=== PATIENT | female | born 1955 | race Caucasian/White ===

== ENCOUNTER → 2017-08-10 | Outpatient (CLI) | payer OTHER ==
--- NOTE | 2017-08-10 09:30 | RAD ---
DATE: 08/10/2017 EXAM: DIGITAL SCREEN BILAT W/CAD HISTORY: Routine screening. COMPARISON: 05/16/2016 and 04/13/2015. This study was interpreted with the benefit of Computerized Aided Detection (CAD). FINDINGS: There is a nodular density in the inner aspect of the right breast mid depth, more prominent than prior study. Additional views are recommended. The left breast is unremarkable. No suspicious microcalcifications are seen. The axillae are unremarkable. Breast Density: SCATTERED The breast parenchyma shows scattered fibroglandular densities. Breast parenchyma level B. IMPRESSION: Right breast density. Additional views are recommended. BI-RADS CATEGORY: 0 INCOMPLETE: NEEDS ADDITIONAL IMAGING EVALUATION AND/OR PRIOR MAMMOGRAMS FOR COMPARISON. RECOMMENDED FOLLOW-UP: ADD ADDITIONAL IMAGING PQRS compliance statement: Patient information was entered into a reminder system with a target due date for the next mammogram. Mammography is a sensitive method for finding small breast cancers, but it does not detect them all and is not a substitute for careful clinical examination. A negative mammogram does not negate a clinically suspicious finding and should not result in delay in biopsying a clinically suspicious abnormality. "Our facility is accredited by the [employer] Mammography [employer]."
== END | disposition home or self-care (01) ==
LOC: MAMMO 08:22
PROVIDERS: ATTEND Obstetrics & Gynecology
DX: Z12.31 Encounter for screening mammogram for malignant neoplasm of breast (principal)
CPT/HCPCS: G0202; 77067

== ENCOUNTER → 2017-08-18 | Outpatient (CLI) | payer OTHER ==
--- NOTE | 2017-08-18 11:10 | RAD ---
DATE: August 18, 2017 EXAM: DIGITAL DIAGNOSTIC RT, BREAST RIGHT HISTORY: Further evaluation of nodule seen on screening mammogram. COMPARISON: August 10, 2017 This study was interpreted with the benefit of Computerized Aided Detection (CAD). FINDINGS: Focal digital compression views of the right breast in the CC and 90 degree projections and a digital rolled CC views of the right breast performed. The previously seen nodular density persists in the CC projection. It is vaguely seen on the 90 degree view. This measures 3.5 mm in size in the CC projection. RIGHT BREAST SONOGRAPHY: High-resolution sonography of all 4 quadrants and the retroareolar region of the right breast were performed. No focal sonographic abnormality is seen. IMPRESSION: Probable benign nodule of the right breast. Recommend 6 month follow-up mammogram of the right breast. BI-RADS CATEGORY: 3 PROBABLE BENIGN-SHORT TERM F/U RECOMMENDED FOLLOW-UP: 6M 6 MONTH FOLLOW-UP PQRS compliance statement: Patient information was entered into a reminder system with a target due date February 08, 2018 for the next mammogram. Mammography is a sensitive method for finding small breast cancers, but it does not detect them all and is not a substitute for careful clinical examination. A negative mammogram does not negate a clinically suspicious finding and should not result in delay in biopsying a clinically suspicious abnormality. "Our facility is accredited by the [employer] Mammography [employer]."
== END | disposition home or self-care (01) ==
LOC: MAMMO 09:25
PROVIDERS: ATTEND Obstetrics & Gynecology
DX: N63.10 Unspecified lump in the right breast, unspecified quadrant (principal)
CPT/HCPCS: 76641; G0206; 77065

== ENCOUNTER → 2017-12-27 | Outpatient (CLI) | payer OTHER | END | disposition home or self-care (01) | LOC: MAMMO 09:38 | DX: N63.10 Unspecified lump in the right breast, unspecified quadrant (principal) | CPT/HCPCS: 77065; G0279 ==

== ENCOUNTER → 2018-08-05 | Outpatient (CLI) | payer OTHER ==
--- NOTE | 2018-08-05 13:42 | RAD ---
DATE: 08/05/2018 EXAM: DIGITAL DIAGNOSTIC BILATERAL HISTORY: Follow-up right breast nodule. COMPARISON: Previous mammogram from 12/27/2017, 2017 and 2016. This study was interpreted with the benefit of Computerized Aided Detection (CAD). FINDINGS: Breast Density: SCATTERED The breast parenchyma shows scattered fibroglandular densities. Breast parenchyma level B. Stable right medial breast nodule is seen dating back to 2016 and is benign given interval stability. The skin and nipples are within normal limits. Asymmetry seen in the left retroareolar breast on the posterior nipple line which a spot compression image gets less dense suggesting overlapping fibroglandular tissue. No suspicious calcifications, spiculated masses or areas of architectural distortion. IMPRESSION: 1. Stable right medial breast nodule dating back to 2016 and is likely benign given interval stability. BI-RADS CATEGORY: 2 BENIGN FINDING(S) RECOMMENDED FOLLOW-UP: 12M 12 MONTH FOLLOW-UP PQRS compliance statement: Patient information was entered into a reminder system with a target due date for the next mammogram. Mammography is a sensitive method for finding small breast cancers, but it does not detect them all and is not a substitute for careful clinical examination. A negative mammogram does not negate a clinically suspicious finding and should not result in delay in biopsying a clinically suspicious abnormality. "Our facility is accredited by the [employer] Mammography [employer]."
== END | disposition home or self-care (01) ==
LOC: MAMMO 12:52
PROVIDERS: ATTEND Obstetrics & Gynecology
DX: N63.12 Unspecified lump in the right breast, upper inner quadrant (principal)
CPT/HCPCS: 77066

== ENCOUNTER → 2019-08-17 | Outpatient (CLI) | payer OTHER ==
--- NOTE | 2019-08-18 17:14 | RAD ---
DATE: 08/17/2019. EXAM: DIGITAL SCREEN BILAT W/CAD. HISTORY: Routine mammographic screening. COMPARISON: 08/05/2018. This study was interpreted with the benefit of Computerized Aided Detection (CAD). FINDINGS: Breast Density: SCATTERED The breast parenchyma shows scattered fibroglandular densities. Breast parenchyma level B.. A small nodule medially on the right is stable and likely benign. Coarse calcifications are benign. There are no suspicious masses, microcalcifications or architectural distortion. The parenchymal pattern is stable. BI-RADS CATEGORY: 2 BENIGN FINDING(S). RECOMMENDED FOLLOW-UP: 12M 12 MONTH FOLLOW-UP. PQRS compliance statement: Patient information was entered into a reminder system with a target due date 08/17/2020 for the next mammogram. Mammography is a sensitive method for finding small breast cancers, but it does not detect them all and is not a substitute for careful clinical examination. A negative mammogram does not negate a clinically suspicious finding and should not result in delay in biopsying a clinically suspicious abnormality. "Our facility is accredited by the [employer] Mammography Program."
== END | disposition home or self-care (01) ==
LOC: MAMMO 09:17
PROVIDERS: ATTEND Obstetrics & Gynecology
DX: Z12.31 Encounter for screening mammogram for malignant neoplasm of breast (principal); N63.10 Unspecified lump in the right breast, unspecified quadrant; N64.89 Other specified disorders of breast
CPT/HCPCS: 77067

== ENCOUNTER → 2020-08-21 | Outpatient (CLI) | payer OTHER ==
--- NOTE | 2020-08-21 11:54 | RAD ---
DATE: 08/21/2020 8:48 AM EXAM: DIGITAL SCREEN BILAT W/CAD HISTORY: Screening COMPARISON: 08/17/2019, 08/05/2018 Bilateral CC and MLO views of the breasts were performed. Bilateral breast tomosynthesis was performed in CC and MLO projections. This study was interpreted with the benefit of Computerized Aided Detection (CAD). FINDINGS: Breast Density: SCATTERED The breast parenchyma shows scattered fibroglandular densities. Breast parenchyma level B No suspicious masses, microcalcifications or architectural distortion is present to suggest malignancy in either breast. The visualized axillae are unremarkable. IMPRESSION: No mammographic evidence of malignancy. BI-RADS CATEGORY: 1 NEGATIVE RECOMMENDED FOLLOW-UP: 12M 12 MONTH FOLLOW-UP Annual screening mammography is recommended, unless clinically indicated sooner based on symptoms or change in physical exam. PQRS compliance statement: Patient information was entered into a reminder system with a target due date for the next mammogram. Mammography is a sensitive method for finding small breast cancers, but it does not detect them all and is not a substitute for careful clinical examination. A negative mammogram does not negate a clinically suspicious finding and should not result in delay in biopsying a clinically suspicious abnormality. "Our facility is accredited by the [employer] Mammography [employer]."
== END ==
LOC: MAMMO 08:45
PROVIDERS: ATTEND Obstetrics & Gynecology
DX: Z12.31 Encounter for screening mammogram for malignant neoplasm of breast (principal)
CPT/HCPCS: 77067

== ENCOUNTER → 2021-08-21 | Outpatient (CLI) | payer BC, OTHER ==
--- NOTE | 2021-08-21 14:15 | RAD ---
DATE: 08/21/2021 EXAM: MG BILAT SCREEN+VARSHA HISTORY: Screening COMPARISON: 08/21/2020, 08/17/2019, 08/05/2018 This study was interpreted with the benefit of Computerized Aided Detection (CAD). Breast Density: SCATTERED The breast parenchyma shows scattered fibroglandular densities. Breast pare nchyma level B. FINDINGS: No suspicious mass, suspicious calcification, or architectural distortion. IMPRESSION: No evidence of malignancy. BI-RADS CATEGORY: 1 NEGATIVE RECOMMENDED FOLLOW-UP: 12M 12 MONTH FOLLOW-UP PQRS compliance statement: Patient information was entered into a reminder system with a target due d ate for the next mammogram. Mammography is a sensitive method for finding small breast cancers, but it does not detect them all a nd is not a substitute for careful clinical examination. A negative mammogram does not negate a clin ically suspicious finding and should not result in delay in biopsying a clinically suspicious abnorma lity. "Our facility is accredited by the [employer] Mammography Program." Electronically signed by: Millie Vargas MD (08/21/2021 2:12 PM) [id number]
== END ==
LOC: MAMMO 09:30
PROVIDERS: ATTEND Family Medicine
DX: Z12.31 Encounter for screening mammogram for malignant neoplasm of breast (principal)
CPT/HCPCS: 77063; 77067